=== PATIENT | female | born 1990 | race Caucasian/White ===

== ENCOUNTER 2017-02-08 15:17 | Emergency (ER) | payer OTHER ==
[~2017-02-08] VITALS: Ht 162.6 cm; Wt 99.8 kg
[~2017-02-08 15:17] MED LIST: NAPROSYN500 MG PO; NO MEDICATIONS
== END 2017-02-08 16:05 | disposition home or self-care (01) ==
LOC: SED 15:17
DX: J06.9 Acute upper respiratory infection, unspecified (principal); F17.200 Nicotine dependence, unspecified, uncomplicated; Z88.0 Allergy status to penicillin; Z88.5 Allergy status to narcotic agent; Z79.899 Other long term (current) drug therapy
CPT/HCPCS: 87651; 99284